=== PATIENT | male | born 1940 | race Caucasian/White ===

== ENCOUNTER 2016-11-24 14:16 | Inpatient (IN) | payer MEDICARE, OTHER ==
[2016-11-24] MEDS ORDERED: IBUPROFEN 600 MG TAB PO STA (14:52)
[2016-11-24] MEDS ORDERED: ACETAMINOPHEN TAB 500 MG TAB PO STA (14:52)
[2016-11-24] MEDS ORDERED: SODIUM CHLORIDE 0.9% 500 ML IV STA ×2 (14:52→16:14)
[2016-11-24] MEDS ORDERED: SODIUM CHLORIDE 0.9% 1,000 ML IV STA ×2 (14:52)
--- NOTE | 2016-11-24 15:10 | ED ---
General Adult HPI - General Chief complaint: Fever Stated complaint: HYPOTENSION Time Seen by Provider: 11/24/16 14:38 Source: patient, RN notes reviewed, old records reviewed Mode of arrival: ambulatory Limitations: no limitations - History of Present Illness Initial comments: This is a 36-year-old male ER for evaluation of dizziness, fever, multiple medical issues. Patient has significant medical history, patient is unable to give accurate history secondary to underlying condition and mental status. History is obtained from EMS and the patient's chart - Related Data Home Medications Medication Instructions Recorded Confirmed Aspirin EC [Ecotrin Low Dose] 81 mg PO DAILY 08/03/16 11/24/16 Cholecalciferol [Vitamin D3] 2,000 unit PO DAILY 08/03/16 11/24/16 Donepezil HCl 5 mg PO HS 08/03/16 11/24/16 Insulin Glargine [Lantus] 5 units SQ DAILY 08/03/16 11/24/16 Lisinopril 10 mg PO DAILY 08/03/16 11/24/16 Multivitamins, Thera [Multivitamin] 1 tab PO HS 08/03/16 11/24/16 Pravastatin Sodium 40 mg PO HS 08/03/16 11/24/16 metFORMIN HCL 1,000 mg PO BID 08/03/16 11/24/16 Amoxicillin/Potassium Clav 1 tab PO Q12HR 11/17/16 11/24/16 [Augmentin 875-125 Tablet] Magnesium Hydroxide [Milk of 400 mg PO Q72H PRN 11/17/16 11/24/16 Magnesia] Sulfamethox-Tmp 800-160Mg [Bactrim 1 tab PO Q12HR 11/17/16 11/24/16 DS 800-160 mg] Acetaminophen Tab [Tylenol Tab] 650 mg PO Q4H PRN 11/24/16 11/24/16 Amino Acids/Protein Hydrolys 30 ml PO BID 11/24/16 11/24/16 [Pro-Stat Supplement] Memantine [Namenda] 10 mg PO BID 11/24/16 11/24/16 Previous Rx's Medication Instructions Recorded Ferrous Sulfate [Feosol] 325 mg PO BID #60 tab 08/07/16 Sennosides-Docusate Sodium 2 tab PO DAILY #30 tablet 08/07/16 [Senokot-S] HYDROcodone/APAP 5-325MG [[place] 1 tab PO Q6HR PRN #90 tab 09/16/16 5-325] Tamsulosin [Flomax] 0.4 mg PO PC-SUPPER #30 cap.er.24h 09/16/16 clonazePAM [KlonoPIN] 0.5 mg PO BID PRN #60 tab 09/16/16 Allergies Allergy/AdvReac Type Severity Reaction Status Date / Time metoprolol Allergy Unknown Verified 11/24/16 14:32 Review of Systems ROS Statement: Those systems with pertinent positive or pertinent negative responses have been documented in the HPI. ROS Other: All systems not noted in ROS Statement are negative. Past Medical History Past Medical History: Dementia, Diabetes Mellitus, Hyperlipidemia, Hypertension Additional Past Medical History / Comment(s): LT HIP FX(HAD SX), INCONT,TOTAL CARE,BEDBOUND,UNABLE TO FEED SELF(PUREED DIET),CONFUSED. non healing wounds R heel and bottom History of Any Multi-Drug Resistant Organisms: Unobtainable Past Surgical History: Orthopedic Surgery Additional Past Surgical History / Comment(s): HEMIARTHROPLASTY LY HIP 08-05-16 Past Anesthesia/Blood Transfusion Reactions: No Reported Reaction Past Psychological History: No Psychological Hx Reported Additional Psychological History / Comment(s): dementia. CURRENTLY AT [facility] [place] IN [place] Smoking Status: Former smoker Past Alcohol Use History: None Reported Additional Past Alcohol Use History / Comment(s): SMOKED BRIEFLY IN HIS 20'S THEN QUIT. Past Drug Use History: None Reported - Past Family History Father History Unknown: Yes Family Medical History: Osteoarthritis (OA) Mother History Unknown: Yes Additional Family Medical History / Comment(s): unk- she got displaced during the war General Exam - General Exam Comments Initial Comments: Large sacral decubitus ulcer with eschar Limitations: no limitations General appearance: alert, in no apparent distress, lethargic, cachectic Head exam: Present: atraumatic, normocephalic, normal inspection Eye exam: Present: normal appearance, PERRL, EOMI. Absent: scleral icterus, conjunctival injection, periorbital swelling ENT exam: Present: normal exam, mucous membranes moist Neck exam: Present: normal inspection. Absent: tenderness, meningismus, lymphadenopathy Respiratory exam: Present: normal lung sounds bilaterally. Absent: respiratory distress, wheezes, rales, rhonchi, stridor Cardiovascular Exam: Present: regular rate, normal rhythm, normal heart sounds. Absent: systolic murmur, diastolic murmur, rubs, gallop, clicks GI/Abdominal exam: Present: soft, normal bowel sounds. Absent: distended, tenderness, guarding, rebound, rigid Extremities exam: Present: normal inspection, full ROM, normal capillary refill. Absent: tenderness, pedal edema, joint swelling, calf tenderness Back exam: Present: normal inspection Neurological exam: Present: alert, oriented X3, CN II-XII intact Psychiatric exam: Present: normal affect, normal mood Skin exam: Present: warm, dry, intact, normal color. Absent: rash Course Vital Signs 11/24/16 11/24/16 11/24/16 14:21 14:32 14:46 Temperature 97.3 F L 100.1 F H Pulse Rate 85 97 Respiratory 18 20 Rate Blood Pressure 99/55 100/52 153/73 O2 Sat by Pulse 99 92 L Oximetry - Reevaluation(s) Reevaluation #1: 11/24/16 16:01 Patient remains in no acute distress EKG Findings - EKG Comments: EKG Findings:: EKG shows normal sinus rhythm rate of 89, AK 136, QRS 80, QTC 420 Medical Decision Making - Medical Decision Making 70 formality ER for evaluation. States that symptoms for evaluation of fever, weakness, worsening sacral decubitus ulcer. Patient has been on outpatient antibiotics oral with no help. Patient will be admitted for further evaluation and treatment, monitoring of bacteremia and sepsis. - Lab Data Result diagrams: 11/24/16 14:35 Lab Results 11/24/16 11/24/16 Range/Units 14:35 14:35 WBC 9.5 (3.8-10.6) k/uL RBC 3.28 L (4.30-5.90) m/uL Hgb 10.1 L (13.0-17.5) gm/dL Hct 31.8 L (39.0-53.0) % MCV 96.8 (80.0-100.0) fL MCH 30.7 (25.0-35.0) pg MCHC 31.8 (31.0-37.0) g/dL RDW 15.1 (11.5-15.5) % Plt Count 358 (150-450) k/uL Neutrophils % 77 % Lymphocytes % 10 % Monocytes % 8 % Eosinophils % 1 % Basophils % 0 % Neutrophils # 7.3 (1.3-7.7) k/uL Lymphocytes # 1.0 (1.0-4.8) k/uL Monocytes # 0.7 (0-1.0) k/uL Eosinophils # 0.1 (0-0.7) k/uL Basophils # 0.0 (0-0.2) k/uL PT 10.6 (9.0-12.0) sec INR 1.0 (<1.1) APTT 23.1 (22.0-30.0) sec - Radiology Data Radiology results: report reviewed (Chest x-ray two-view), image reviewed Disposition Clinical Impression: Fever, Altered mental status, Acute renal failure, Sacral decubitus ulcer, stage IV, Failure of outpatient treatment Disposition: ADMITTED IP TO THIS [facility] Condition: Fair Referrals: Keron Mora MD [Primary Care Provider] - 1-2 days
[2016-11-24] MEDS ORDERED: IV VANCOMYCIN PER PHARMACY 1 EACH MISC MISCELLANE PRN (15:43)
[2016-11-24 15:45] LABS: Basophils % (A) 0 %; CH 30.5; CHCM 31.6; Eosinophils # (A) 0.1 k/uL (0-0.7); Eosinophils % (A) 1 %; HCT 31.8 % (39.0-53.0); HDW 2.21; HGB 10.1 gm/dL (13.0-17.5); Luc # (Auto) 0.34; Luc % (Auto) 4; Lymphocytes % (A) 10 %; MCH 30.7 pg (25.0-35.0); MCHC 31.8 g/dL (31.0-37.0); MCV 96.8 fL (80.0-100.0); Mean Platelet Volume 7.2; Monocytes # (A) 0.7 k/uL (0-1.0); Monocytes % (A) 8 %; Neutrophils # (A) 7.3 k/uL (1.3-7.7); Neutrophils % (A) 77 %; RBC 3.28 m/uL (4.30-5.90); RDW 15.1 % (11.5-15.5); WBC 9.5 k/uL (3.8-10.6); WBC (Perox) 10.08
[2016-11-24] MEDS ORDERED: VANCOMYCIN 1,250 MG in SODIUM CHLORIDE 0.9% 250 ML IVPB STA (15:50)
[2016-11-24 15:57] LABS: Partial Thromboplastin Time 23.1 sec (22.0-30.0); Prothrombin Time 10.6 sec (9.0-12.0)
[2016-11-24 15:58] LABS: ALT 65 U/L (21-72); AST 48 U/L (17-59); Alkaline Phosphatase 50 U/L (38-126); Anion Gap 13 mmol/L; Blood Urea Nitrogen 49 mg/dL (9-20); Calcium 8.7 mg/dL (8.4-10.2); Carbon Dioxide 19 mmol/L (22-30); Chloride 109 mmol/L (98-107); Glucose 186 mg/dL (74-99); Magnesium 2.1 mg/dL (1.6-2.3); Non-African American GFR(MDRD) 59 (>60 ml/min/1.73 sqM); Phosphorous 3.9 mg/dL (2.5-4.5); Potassium 5.5 mmol/L (3.5-5.1); Sodium 141 mmol/L (137-145); Total Bilirubin 0.3 mg/dL (0.2-1.3); Total Protein 5.5 g/dL (6.3-8.2)
[2016-11-24] MEDS ORDERED: ACETAMINOPHEN IV (For NPO) 1,000 MG in EMPTY BAG 1 BAG IVPB ONE (15:58)
[2016-11-24] MEDS ORDERED: SODIUM CHLORIDE 0.9% 2,000 ML IV STA (16:14)
[2016-11-24 16:16] LABS: Creatine Kinase 519 U/L (55-170)
[2016-11-24 16:23] LABS: Appearance,Urine Clear (Clear); Bilirubin,Urine Negative (Negative); Glucose,Urine (UA) 1+ (Negative); Ketones,Urine Negative (Negative); Leukocyte Esterase,Urine Negative (Negative); Nitrite,Urine Negative (Negative); PH, Urine 5.5 (5.0-8.0); Protein,Urine Trace (Negative); UA Billing (MACRO vs. MICRO) CHEM
[2016-11-24] MEDS ORDERED: ACETAMINOPHEN IV (For NPO) 1,000 MG in EMPTY BAG 1 BAG IVPB PRN (16:23)
[2016-11-24 16:28] LABS: Troponin I <0.012 ng/mL (0.000-0.034)
[2016-11-24 16:29] LABS: Creatine Kinase MB 7.1 ng/mL (0.0-2.4)
--- NOTE | 2016-11-24 16:41 | XR ---
EXAMINATION TYPE: XR chest 2V DATE OF EXAM: 11/24/2016 4:27 PM COMPARISON: Prior chest x-ray September 10, 2016 HISTORY: Weakness TECHNIQUE: Frontal and lateral views of the chest are obtained. 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 Somewhat low lung volumes is again seen. There is left basilar linear scarring or atelectasis. There is no suspici ous focal air space opacity, pleural effusion, or pneumothorax seen. The cardiac silhouette size is within normal limits with atherosclerotic thoracic aorta. The osseous structures are somewhat demin eralized. Some multilevel spurring in the upper to midthoracic spine is present. IMPRESSION: Post CABG changes with left basilar linear atelectasis felt present.
[2016-11-24] MEDS: SODIUM CHLORIDE 0.9% 500 ML IV SCH ×3 (18:38→18:40)
[2016-11-24] MEDS: SODIUM CHLORIDE 0.9% 1,000 ML IV SCH ×2 (20:15→22:14)
[2016-11-24] MEDS ORDERED: clonazePAM 0.5 MG TAB PO PRN (20:25)
[2016-11-24] MEDS ORDERED: MAGNESIUM HYDROXIDE 2,400 MG/10 ML CUP PO PRN (20:25)
[2016-11-24 20:47] LABS: Glucose,Whole Blood 109 mg/dL (75-99)
[2016-11-24] MEDS ORDERED: NON-FORMULARY DRUG (Amino Acids/Protein Hydrolys [Pro-Stat Supplement] 30 ML) PO SCH (21:00)
[2016-11-24] MEDS: INSULIN LISPRO (humaLOG) 300 UNIT/3 ML VIAL SQ SCH (22:01)
[2016-11-24 22:11] LABS: Hemoglobin A1C 7.1 % (4.2-6.1)
[2016-11-24] MEDS: PRAVASTATIN SODIUM 40 MG TAB PO SCH (22:13)
[2016-11-24] MEDS: DONEPEZIL 5 MG TAB PO SCH (22:13)
[2016-11-24] MEDS: MEMANTINE 10 MG TAB PO SCH (22:13)
[2016-11-24] MEDS: MULTIVITAMINS, THERA 1 EACH TAB PO SCH (22:13)
[2016-11-24] MEDS: FERROUS SULFATE 325 MG TAB PO SCH (22:13)
[2016-11-25 05:40] LABS: Glucose,Whole Blood 96 mg/dL (75-99)
[2016-11-25] MEDS: INSULIN LISPRO (humaLOG) 300 UNIT/3 ML VIAL SQ SCH ×4 (06:40→21:45)
[2016-11-25] MEDS: SODIUM CHLORIDE 0.9% 1,000 ML IV SCH (06:42)
[2016-11-25 07:17] LABS: Anion Gap 13 mmol/L; Blood Urea Nitrogen 31 mg/dL (9-20); Calcium 8.3 mg/dL (8.4-10.2); Carbon Dioxide 15 mmol/L (22-30); Chloride 114 mmol/L (98-107); Glucose 81 mg/dL (74-99); Non-African American GFR(MDRD) >60 (>60 ml/min/1.73 sqM); Potassium 4.7 mmol/L (3.5-5.1); Sodium 142 mmol/L (137-145)
[2016-11-25] MEDS: ENOXAPARIN 40 MG/0.4 ML SYRINGE SQ SCH (09:23)
[2016-11-25] MEDS: PANTOPRAZOLE 40 MG/10 ML VIAL IV SCH (09:23)
[2016-11-25] MEDS: FERROUS SULFATE 325 MG TAB PO SCH ×2 (09:24→21:44)
[2016-11-25] MEDS: ASPIRIN 81 MG CHEW PO SCH (09:24)
[2016-11-25] MEDS: LISINOPRIL 10 MG TAB PO SCH (09:24)
[2016-11-25] MEDS: MEMANTINE 10 MG TAB PO SCH ×2 (09:24→21:45)
[2016-11-25] MEDS: CHOLECALCIFEROL 1,000 UNIT TAB PO SCH (09:24)
[2016-11-25] MEDS: SENNOSIDES-DOCUSATE SODIUM 1 EACH TAB PO SCH (09:35)
[2016-11-25] MEDS ORDERED: Potassium Replacement Protocol 1 EACH MISC MISCELLANE PRN (10:42)
[2016-11-25] MEDS ORDERED: Magnesium Replacement Protocol 1 EACH MISC MISCELLANE PRN (10:42)
[2016-11-25 11:49] LABS: Glucose,Whole Blood 117 mg/dL (75-99)
--- NOTE | 2016-11-25 12:48 | P.HPIM ---
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 Patient is a chronic resident at the dementia unit at [facility] he's been following closely with the wound care clinic for decubitus ulcers involving the coccyx area as well as the left ankle. For the past few days, patient was noted to be more lethargic and has been having decreased in his appetite. Yes[facility] with the highest of 102.3. He was sent to the emergency room for further evaluation. In the emergency room, patient was found to be septic with an elevated lactate. He was started on broad-spectrum antibiotic and IV fluid and was admitted to the hospital for further evaluation. Patient himself is nonverbal and is unable to provide any medical history. Most of the medical history was obtained by chart review and nursing staff report. Review of Systems Unable to review other systems as patient is nonverbal Past Medical History Past Medical History: Dementia, Diabetes Mellitus, Hyperlipidemia, Hypertension Additional Past Medical History / Comment(s): LT HIP FX(HAD SX), INCONT,TOTAL CARE,BEDBOUND,UNABLE TO FEED SELF(PUREED DIET),CONFUSED. non healing wounds R heel and bottom History of Any Multi-Drug Resistant Organisms: Unobtainable Past Surgical History: Orthopedic Surgery Additional Past Surgical History / Comment(s): HEMIARTHROPLASTY LY HIP 08-05-16 Past Anesthesia/Blood Transfusion Reactions: No Reported Reaction Past Psychological History: No Psychological Hx Reported Additional Psychological History / Comment(s): dementia. CURRENTLY AT [facility] [place] IN [place] Smoking Status: Former smoker Past Alcohol Use History: None Reported Additional Past Alcohol Use History / Comment(s): SMOKED BRIEFLY IN HIS 20'S THEN QUIT. Past Drug Use History: None Reported - Past Family History Father History Unknown: Yes Family Medical History: Osteoarthritis (OA) Mother History Unknown: Yes Additional Family Medical History / Comment(s): unk- she got displaced during the war Medications and Allergies Home Medications Medication Instructions Recorded Confirmed Type Aspirin EC [Ecotrin Low Dose] 81 mg PO DAILY 08/03/16 11/24/16 History Cholecalciferol [Vitamin D3] 2,000 unit PO DAILY 08/03/16 11/24/16 History Donepezil HCl 5 mg PO HS 08/03/16 11/24/16 History Insulin Glargine [Lantus] 5 units SQ DAILY 08/03/16 11/24/16 History Lisinopril 10 mg PO DAILY 08/03/16 11/24/16 History Multivitamins, Thera [Multivitamin] 1 tab PO HS 08/03/16 11/24/16 History Pravastatin Sodium 40 mg PO HS 08/03/16 11/24/16 History metFORMIN HCL 1,000 mg PO BID 08/03/16 11/24/16 History Amoxicillin/Potassium Clav 1 tab PO Q12HR 11/17/16 11/24/16 History [Augmentin 875-125 Tablet] Magnesium Hydroxide [Milk of 400 mg PO Q72H PRN 11/17/16 11/24/16 History Magnesia] Sulfamethox-Tmp 800-160Mg [Bactrim 1 tab PO Q12HR 11/17/16 11/24/16 History DS 800-160 mg] Acetaminophen Tab [Tylenol Tab] 650 mg PO Q4H PRN 11/24/16 11/24/16 History Amino Acids/Protein Hydrolys 30 ml PO BID 11/24/16 11/24/16 History [Pro-Stat Supplement] Memantine [Namenda] 10 mg PO BID 11/24/16 11/24/16 History Allergies Allergy/AdvReac Type Severity Reaction Status Date / Time metoprolol Allergy Unknown Verified 11/24/16 14:32 Physical Exam Vitals: Vital Signs Temp Pulse Pulse Resp BP BP Pulse Ox 11/25/16 11:44 91 20 11/25/16 11:43 98.8 F 91 20 126/55 95 11/25/16 08:00 97.0 F L 84 18 119/54 98 11/25/16 04:00 100.0 F H 75 18 85/49 98 11/25/16 00:00 99.8 F H 78 18 85/47 99 11/24/16 20:00 99.5 F 80 18 114/47 98 11/24/16 18:57 97.2 F L 89 18 108/58 98 11/24/16 18:30 97.2 F L 89 18 108/58 98 11/24/16 17:52 97.3 F L 72 18 116/57 98 11/24/16 17:25 77 18 127/61 98 11/24/16 16:27 97.1 F L 80 18 111/61 96 Intake and Output 11/24/16 11/25/16 11/25/16 22:59 06:59 14:59 Intake Total 1600 495 Balance 1600 495 Intake: Intake, IV Titration 1600 375 Amount ACETAMINOPHEN IV (For NPO 400 ) 1,000 mg In Empty Bag 1 bag @ 400 mls/hr IVPB Q6HR PRN Rx#:[id number] Sodium Chloride 0.9% 1, 1200 375 000 ml @ 150 mls/hr IV . Q6H40M LORE Rx#:[id number] Oral 120 Other: Voiding Method Diaper Diaper Diaper # Voids 1 Weight 67.5 kg 67.5 kg 67.5 kg Patient Weight 11/26/16 06:59 Weight 67.5 kg General: The patient is awake and alert, in no distress Eye: there is normal conjunctiva bilaterally. Neck: The neck is supple, there is no JVD. Cardiovascular: Normal S1-S2, no S3-S4, no murmurs. Respiratory: Lungs clear to auscultation bilaterally Gastrointestinal: Abdomen is soft, nontender Musculoskeletal: There is no pedal edema. Skin: Skin is warm and dry. Please refer to the nursing staff documentation and pictures in the paper chart for description of the decubitus ulcer Results CBC & Chem 7: 11/24/16 14:35 11/25/16 05:48 Labs: Abnormal Lab Results - Last 24 Hours (Table) 11/24/16 11/24/16 11/25/16 Range/Units 18:19 20:44 05:48 Chloride 114 H (98-107) mmol/L Carbon Dioxide 15 L (22-30) mmol/L BUN 31 H (9-20) mg/dL POC Glucose (mg/dL) 109 H (75-99) mg/dL Plasma Lactic Acid Aman 2.3 H* (0.7-2.0) mmol/L Calcium 8.3 L (8.4-10.2) mg/dL 11/25/16 Range/Units 11:43 Chloride (98-107) mmol/L Carbon Dioxide (22-30) mmol/L BUN (9-20) mg/dL POC Glucose (mg/dL) 117 H (75-99) mg/dL Plasma Lactic Acid Aman (0.7-2.0) mmol/L Calcium (8.4-10.2) mg/dL Thrombosis Risk Factor Assmnt - Choose All That Apply Each Factor Represents 1 point: Abnormal pulmonary function (COPD) Each Risk Factor Represents 2 Points: Age 61-74 years Thrombosis Risk Factor Assessment Total Risk Factor Score: 3 Thrombosis Risk Factor Assessment Level: Moderate Risk Assessment and Plan Plan: 1. decubitus ulcer infection with sepsis on presentation: Currently on broad- spectrum antibiotic and IV fluid. Patient was seen and evaluated by infectious disease, appreciate recommendations. We will consult general surgery for further evaluation if any debridement is needed. 2. 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 Essential hypertension: Blood pressure well-controlled 4. Type 2 diabetes mellitus 5. Iron deficiency anemia 6. DVT prophylaxis with Lovenox Today, I reviewed his lab work results and medication list. Continue current regimen. Continue broad spectrum antibiotic. Appreciate senior market intelligence consultant's recommendations. Repeat lab work in the morning.
--- NOTE | 2016-11-25 13:10 | P.GSCN ---
History of Present Illness Consult date: 11/25/16 Reason for Consult: Sacral decubitus ulcer History of present illness: The patient was hospitalized with sepsis. He was found to have an infected decubitus ulcer in the sacral region. Local wound care has been unable to improve the overall appearance. There is a foul odor. The patient is nonverbal. The history is obtained from the chart. Review of Systems ROS unobtainable: due to mental status Past Medical History Past Medical History: Dementia, Diabetes Mellitus, Hyperlipidemia, Hypertension Additional Past Medical History / Comment(s): LT HIP FX(HAD SX), INCONT,TOTAL CARE,BEDBOUND,UNABLE TO FEED SELF(PUREED DIET),CONFUSED. non healing wounds R heel and bottom History of Any Multi-Drug Resistant Organisms: Unobtainable Past Surgical History: Orthopedic Surgery Additional Past Surgical History / Comment(s): HEMIARTHROPLASTY LY HIP 08-05-16 Past Anesthesia/Blood Transfusion Reactions: No Reported Reaction Past Psychological History: No Psychological Hx Reported Additional Psychological History / Comment(s): dementia. CURRENTLY AT [facility] [place] IN [place] Smoking Status: Former smoker Past Alcohol Use History: None Reported Additional Past Alcohol Use History / Comment(s): SMOKED BRIEFLY IN HIS 20'S THEN QUIT. Past Drug Use History: None Reported - Past Family History Father History Unknown: Yes Family Medical History: Osteoarthritis (OA) Mother History Unknown: Yes Additional Family Medical History / Comment(s): unk- she got displaced during the war Medications and Allergies Home Medications Medication Instructions Recorded Confirmed Type Aspirin EC [Ecotrin Low Dose] 81 mg PO DAILY 08/03/16 11/24/16 History Cholecalciferol [Vitamin D3] 2,000 unit PO DAILY 08/03/16 11/24/16 History Donepezil HCl 5 mg PO HS 08/03/16 11/24/16 History Insulin Glargine [Lantus] 5 units SQ DAILY 08/03/16 11/24/16 History Lisinopril 10 mg PO DAILY 08/03/16 11/24/16 History Multivitamins, Thera [Multivitamin] 1 tab PO HS 08/03/16 11/24/16 History Pravastatin Sodium 40 mg PO HS 08/03/16 11/24/16 History metFORMIN HCL 1,000 mg PO BID 08/03/16 11/24/16 History Amoxicillin/Potassium Clav 1 tab PO Q12HR 11/17/16 11/24/16 History [Augmentin 875-125 Tablet] Magnesium Hydroxide [Milk of 400 mg PO Q72H PRN 11/17/16 11/24/16 History Magnesia] Sulfamethox-Tmp 800-160Mg [Bactrim 1 tab PO Q12HR 11/17/16 11/24/16 History DS 800-160 mg] Acetaminophen Tab [Tylenol Tab] 650 mg PO Q4H PRN 11/24/16 11/24/16 History Amino Acids/Protein Hydrolys 30 ml PO BID 11/24/16 11/24/16 History [Pro-Stat Supplement] Memantine [Namenda] 10 mg PO BID 11/24/16 11/24/16 History Allergies Allergy/AdvReac Type Severity Reaction Status Date / Time metoprolol Allergy Unknown Verified 11/24/16 14:32 Surgical - Exam Vital Signs Temp Pulse Resp BP 97.3 F L 74 18 99/55 11/24/16 14:21 11/24/16 14:21 11/24/16 14:21 11/24/16 14:21 Physical exam: General: Well-developed, well-nourished HEENT: Normocephalic, sclerae nonicteric Abdomen: Nontender, nondistended Extremities: No edema Neuro: Nonverbal, contractures noted Sacral region with a large 10 x 7 cm foul-smelling decubitus ulcer. There is serous drainage, mild tenderness, no erythema Results - Labs 11/24/16 14:35 11/25/16 05:48 Abnormal Lab Results - Last 24 Hours (Table) 11/24/16 11/24/16 11/25/16 Range/Units 18:19 20:44 05:48 Chloride 114 H (98-107) mmol/L Carbon Dioxide 15 L (22-30) mmol/L BUN 31 H (9-20) mg/dL POC Glucose (mg/dL) 109 H (75-99) mg/dL Plasma Lactic Acid Aman 2.3 H* (0.7-2.0) mmol/L Calcium 8.3 L (8.4-10.2) mg/dL 11/25/16 Range/Units 11:43 Chloride (98-107) mmol/L Carbon Dioxide (22-30) mmol/L BUN (9-20) mg/dL POC Glucose (mg/dL) 117 H (75-99) mg/dL Plasma Lactic Acid Aman (0.7-2.0) mmol/L Calcium (8.4-10.2) mg/dL Diabetes panel 11/25/16 Range/Units 05:48 Sodium 142 (137-145) mmol/L Potassium 4.7 (3.5-5.1) mmol/L Chloride 114 H (98-107) mmol/L Carbon Dioxide 15 L (22-30) mmol/L BUN 31 H (9-20) mg/dL Creatinine 0.94 (0.66-1.25) mg/dL Glucose 81 (74-99) mg/dL Calcium 8.3 L (8.4-10.2) mg/dL Calcium panel 11/25/16 Range/Units 05:48 Calcium 8.3 L (8.4-10.2) mg/dL Pituitary panel 11/25/16 Range/Units 05:48 Sodium 142 (137-145) mmol/L Potassium 4.7 (3.5-5.1) mmol/L Chloride 114 H (98-107) mmol/L Carbon Dioxide 15 L (22-30) mmol/L BUN 31 H (9-20) mg/dL Creatinine 0.94 (0.66-1.25) mg/dL Glucose 81 (74-99) mg/dL Calcium 8.3 L (8.4-10.2) mg/dL Adrenal panel 11/25/16 Range/Units 05:48 Sodium 142 (137-145) mmol/L Potassium 4.7 (3.5-5.1) mmol/L Chloride 114 H (98-107) mmol/L Carbon Dioxide 15 L (22-30) mmol/L BUN 31 H (9-20) mg/dL Creatinine 0.94 (0.66-1.25) mg/dL Glucose 81 (74-99) mg/dL Calcium 8.3 L (8.4-10.2) mg/dL Assessment and Plan (1) Sacral decubitus ulcer, stage IV Narrative/Plan: We'll proceed with debridement of this foul-smelling sacral decubitus ulcer tomorrow. Status: Acute
[2016-11-25] MEDS ORDERED: VANCOMYCIN 1,250 MG in SODIUM CHLORIDE 0.9% 250 ML IVPB SCH (16:00)
[2016-11-25] MEDS: COLLAGENASE 250 UNIT/GM OINTMENT 30 GM TUBE TOPICAL SCH (16:03)
--- NOTE | 2016-11-25 17:01 | CONS ---
DATE OF CONSULTATION: 11/25/2016 REASON FOR CONSULTATION: Possible sepsis and sacral wound. HISTORY OF PRESENT ILLNESS: The patient is a 76-year-old male, who is resident of [facility]. Underlying dementia. The patient did have a chronic wound to his sacral area for which the patient did follow up with [facility]. He also has right heel wound apparently that has been healed up by Dr. Morales. The patient has been sent to the ER at [facility] where the patient having persistent fever of 102 degrees Fahrenheit at the assisted. The patient has been subsequently evaluated by the ER physician. The patient did have an elevated lactic acid. However, his white count was at 9.5. The patient urine was not significantly positive. He did have influenza serology which was negative. Patient has been started on Rocephin and Vanco. ID was consulted for further recommendations regarding antibiotic therapy. All of this information has been obtained from review of the chart, talking to the nursing staff and the patient is current did have underlying dementia and he is unable to provide any reliable history. REVIEW OF SYSTEMS: Could not be reliably obtained. The positive point have been mentioned in the history of present illness. PAST MEDICAL HISTORY: Significant for hypertension, hyperlipidemia, diabetes mellitus, dementia, nonbleeding ulcer also to the sacral area. PAST SURGICAL HISTORY: Hemiarthroplasty left hip. SOCIAL HISTORY: Remote history of smoking. No drinking or drug use. FAMILY HISTORY: No pertinent findings were noticed. ALLERGIES: METOPROLOL. Medications include the patient is on: 1. Tylenol. 2. [place]. 3. Aspirin. 4. Rocephin 1 gram q.24. 5. Klonopin. 6. Aricept. 7. Lovenox. 8. Iron sulfate. 9. Lantus. 10. Humalog. 11. Zestril. 12. Milk of magnesia. 13. Namenda. 14. Theragran. 15. Protonix. 16. Pravachol. 17. Senokot. 18. Vancomycin pharmacy to dose. On examination, blood pressure is 126/55 with a pulse of 91, temperature 98.8. He is 95%. General description is an elderly male, lying in bed in no distress. No tachypnea or accessory muscle of respiration use. HEENT examination shows pallor. There is no scleral icterus. Oral mucosal membranes dry. NECK: Trachea is central. no thyromegaly LUNGS: Unlabored breathing. Diminished breath sounds at the bases. HEART: S1, S2. Regular rate and rhythm. ABDOMEN: Soft, no tenderness. EXTREMITIES : No edema of feet. Examination of the sacral area, unstable pressure ulcers with significantly deep with foul smelling and slough tissue at the base. No significant surrounding erythema. NEUROLOGICAL: The patient is awake. Overall orientation couldnot be determined as the patient is not verbal. LABS: Hemoglobin is 10.1, white count 9.5, BUN of 31, creatinine 0.94. Electrolytes have been normal. Lactic acid 2.3. UA has been negative. Diagnostic impression and plan: Patient admitted to the hospital with fever, did have an elevated lactic acid, source is likely infected sacral pressure ulcer with a foul smelling, the likely organism would be the gram-positive skin griffin as well as the enteric gram-negative. In view of the proximity to his GI tract, the patient was clinical focus of infection. Chest was clear to auscultation and urinalysis has been negative. PLAN: 1. Will apply Santyl to the wound followed by moist dressing. 2. Recommend obtaining a surgery evaluation for debridement of the wound and deep cultures. 3. Continue the patient on Vancomycin and Fortaz and adjust antibiotic further on the basis of the cultures. We will follow-up on clinical condition and cultures to further adjust the medication if needed. Thank you for this consultation. Will follow this patient along with you. MATTHEW
[2016-11-25] MEDS: TAMSULOSIN 0.4 MG CAP.ER.24H PO SCH (17:08)
[2016-11-25 17:19] LABS: Glucose,Whole Blood 145 mg/dL (75-99)
[2016-11-25 20:20] LABS: Glucose,Whole Blood 201 mg/dL (75-99)
[2016-11-25] MEDS: MULTIVITAMINS, THERA 1 EACH TAB PO SCH (21:44)
[2016-11-25] MEDS: DONEPEZIL 5 MG TAB PO SCH (21:45)
[2016-11-25] MEDS: PRAVASTATIN SODIUM 40 MG TAB PO SCH (21:45)
[2016-11-25] MEDS: INSULIN GLARGINE 100 UNIT/ML 10 ML VIAL SQ SCH (21:45)
[2016-11-25] MEDS: ACETAMINOPHEN TAB 325 MG TAB PO PRN (21:51)
[2016-11-26] MEDS: INSULIN LISPRO (humaLOG) 300 UNIT/3 ML VIAL SQ SCH ×4 (05:41→22:30)
[2016-11-26 05:46] LABS: Glucose,Whole Blood 91 mg/dL (75-99)
[2016-11-26 06:40] LABS: Basophils % (A) 0 %; CH 29.9; Eosinophils # (A) 0.1 k/uL (0-0.7); Eosinophils % (A) 1 %; HCT 28.6 % (39.0-53.0); HDW 2.24; HGB 8.7 gm/dL (13.0-17.5); Hypochromasia Moderate; Luc # (Auto) 0.31; Luc % (Auto) 3; Lymphocytes # (A) 1.4 k/uL (1.0-4.8); Lymphocytes % (A) 15 %; MCH 30.5 pg (25.0-35.0); MCHC 30.5 g/dL (31.0-37.0); MCV 99.8 fL (80.0-100.0); Macrocytosis Slight; Mean Platelet Volume 6.9; Monocytes # (A) 0.7 k/uL (0-1.0); Monocytes % (A) 8 %; Neutrophils # (A) 6.8 k/uL (1.3-7.7); Neutrophils % (A) 72 %; RBC 2.87 m/uL (4.30-5.90); RDW 14.7 % (11.5-15.5); WBC 9.4 k/uL (3.8-10.6); WBC (Perox) 9.56
[2016-11-26 06:45] LABS: Anion Gap 9 mmol/L; Blood Urea Nitrogen 16 mg/dL (9-20); Calcium 7.8 mg/dL (8.4-10.2); Carbon Dioxide 16 mmol/L (22-30); Chloride 114 mmol/L (98-107); Glucose 88 mg/dL (74-99); Magnesium 1.6 mg/dL (1.6-2.3); Non-African American GFR(MDRD) >60 (>60 ml/min/1.73 sqM); Potassium 4.2 mmol/L (3.5-5.1); Sodium 139 mmol/L (137-145)
[2016-11-26] MEDS: ENOXAPARIN 40 MG/0.4 ML SYRINGE SQ SCH (07:58)
[2016-11-26] MEDS: CHOLECALCIFEROL 1,000 UNIT TAB PO SCH (07:58)
[2016-11-26] MEDS: LISINOPRIL 10 MG TAB PO SCH (07:58)
[2016-11-26] MEDS: ASPIRIN 81 MG CHEW PO SCH (07:58)
[2016-11-26] MEDS: PANTOPRAZOLE 40 MG/10 ML VIAL IV SCH (07:59)
[2016-11-26] MEDS: COLLAGENASE 250 UNIT/GM OINTMENT 30 GM TUBE TOPICAL SCH (07:59)
[2016-11-26] MEDS: MEMANTINE 10 MG TAB PO SCH ×2 (07:59→22:30)
[2016-11-26] MEDS: FERROUS SULFATE 325 MG TAB PO SCH ×2 (07:59→22:30)
[2016-11-26] MEDS: VANCOMYCIN 1,250 MG in SODIUM CHLORIDE 0.9% 250 ML IVPB SCH (08:06)
[2016-11-26] MEDS: SENNOSIDES-DOCUSATE SODIUM 1 EACH TAB PO SCH (08:07)
[2016-11-26] MEDS: INSULIN GLARGINE 100 UNIT/ML 10 ML VIAL SQ SCH (08:07)
[2016-11-26 11:55] LABS: Glucose,Whole Blood 101 mg/dL (75-99)
[2016-11-26] MEDS ORDERED: LACTATED RINGERS 1,000 ML IV ONE (12:00)
--- NOTE | 2016-11-26 12:27 | P.PN ---
Subjective No events overnight. Patient is laying in bed comfortably. He is nonverbal chronically. Objective - Vital Signs Vital signs: Vital Signs Temp 98.6 F 11/26/16 11:42 Pulse 73 11/26/16 11:42 Resp 18 11/26/16 11:42 BP 108/66 11/26/16 11:42 Pulse Ox 95 11/26/16 11:42 Intake & Output 11/25/16 11/26/16 11/26/16 18:59 06:59 18:59 Intake Total 2085 700 Balance 2085 700 Weight 67.5 kg 75.5 kg Intake: Intake, IV Titration 1725 700 Amount Sodium Chloride 0.9% 1, 1425 450 000 ml @ 150 mls/hr IV . Q6H40M LORE Rx#:[id number] Vancomycin 1,250 mg In 250 250 Sodium Chloride 0.9% 250 ml @ 125 mls/hr IVPB Q16H LORE Rx#:[id number] cefTRIAXone 1,000 mg In 50 Sodium Chloride 0.9% 50 ml @ 100 mls/hr IVPB Q24H LORE Rx#:[id number] Oral 360 Other: Voiding Method Diaper Diaper Diaper # Voids 1 1 - Exam General: The patient is awake and alert, in no distress Eye: there is normal conjunctiva bilaterally. Neck: The neck is supple, there is no JVD. Cardiovascular: Normal S1-S2, no S3-S4, no murmurs. Respiratory: Lungs clear to auscultation bilaterally Gastrointestinal: Abdomen is soft, nontender Musculoskeletal: There is no pedal edema. Neurological:. Speech is normal. Skin: Please refer to nursing staff documentation as well as pictures in the paper chart for description of the decubitus ulcer - Labs CBC & Chem 7: 11/26/16 05:56 11/26/16 05:56 Labs: Abnormal Lab Results - Last 24 Hours (Table) 11/25/16 11/25/16 11/26/16 Range/Units 17:00 20:18 05:56 RBC (4.30-5.90) m/uL Hgb (13.0-17.5) gm/dL Hct (39.0-53.0) % MCHC (31.0-37.0) g/dL Chloride 114 H (98-107) mmol/L Carbon Dioxide 16 L (22-30) mmol/L POC Glucose (mg/dL) 145 H 201 H (75-99) mg/dL Calcium 7.8 L (8.4-10.2) mg/dL 11/26/16 11/26/16 Range/Units 05:56 11:32 RBC 2.87 L (4.30-5.90) m/uL Hgb 8.7 L (13.0-17.5) gm/dL Hct 28.6 L (39.0-53.0) % MCHC 30.5 L (31.0-37.0) g/dL Chloride (98-107) mmol/L Carbon Dioxide (22-30) mmol/L POC Glucose (mg/dL) 101 H (75-99) mg/dL Calcium (8.4-10.2) mg/dL Microbiology - Last 24 Hours (Table) 11/24/16 22:00 Blood Culture - Preliminary Blood No Growth after 24 hours Assessment and Plan Plan: 1. decubitus ulcer infection with sepsis on presentation: Currently on broad- spectrum antibiotic. Patient was seen and evaluated by infectious disease and general surgery. Plan for O today for debridement.R 2. 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 Essential hypertension: Blood pressure well-controlled 4. Type 2 diabetes mellitus 5. Iron deficiency anemia 6. DVT prophylaxis with Lovenox Plan for today: Discontinue IV fluids. OR later today for debridement. Continue supportive care otherwise. Repeat lab work in the morning.
[2016-11-26] MEDS ORDERED: MIDAZOLAM 2 MG/2 ML VIAL ONE (12:53)
[2016-11-26] MEDS ORDERED: PROPOFOL 10 MG/ML 20 ML VIAL IV ONE (12:53)
[2016-11-26] MEDS ORDERED: LIDOCAINE 1% INJ 10MG/ML (20 ML MDV) ONE (12:53)
[2016-11-26] MEDS ORDERED: fentaNYL (PF) 50 MCG/ML 2 ML AMP ONE (12:53)
[2016-11-26] MEDS ORDERED: ePHEDrine 50 MG/ML 1 ML AMP ONE (12:53)
[2016-11-26] MEDS ORDERED: LIDOCAINE 1% (PF) 10MG/ML VIAL SQ ONE (13:17)
--- NOTE | 2016-11-26 13:30 | P.PCN ---
Date of Procedure: 11/26/16 Procedure(s) Performed: PREOPERATIVE DIAGNOSIS: Sacral decubitus ulcer POSTOPERATIVE DIAGNOSIS: Same PROCEDURE: Excisional debridement SURGEON: Duncan EBL: Minimal ANESTHESIA: Sedation COMPLICATIONS: None OPERATIVE PROCEDURE: Patient was placed in the right decubitus position. The sacral region was prepped and draped in usual sterile fashion. The necrotic tissue was debrided sharply using a scalpel and excised. This dissection took place all way down to the sacral bone which was noted to be somewhat necrotic. Areas of bleeding were controlled using ultra cautery. Deep cultures were taken. The wound was then packed with a saline moistened Kerlix roll. DISPOSITION: Stable to recovery room
[2016-11-26 16:53] LABS: Glucose,Whole Blood 123 mg/dL (75-99)
[2016-11-26] MEDS: HYDROcodone/APAP 5-325MG 1 EACH TAB PO PRN (18:23)
[2016-11-26] MEDS: TAMSULOSIN 0.4 MG CAP.ER.24H PO SCH (18:25)
[2016-11-26 20:57] LABS: Glucose,Whole Blood 236 mg/dL (75-99)
[2016-11-26] MEDS: DONEPEZIL 5 MG TAB PO SCH (22:29)
[2016-11-26] MEDS: MULTIVITAMINS, THERA 1 EACH TAB PO SCH (22:29)
[2016-11-26] MEDS: PRAVASTATIN SODIUM 40 MG TAB PO SCH (22:29)
[2016-11-27] MEDS: VANCOMYCIN 1,250 MG in SODIUM CHLORIDE 0.9% 250 ML IVPB SCH ×2 (00:21→16:33)
[2016-11-27 05:15] LABS: Glucose,Whole Blood 100 mg/dL (75-99)
[2016-11-27] MEDS: INSULIN LISPRO (humaLOG) 300 UNIT/3 ML VIAL SQ SCH ×4 (06:12→22:41)
[2016-11-27 07:07] LABS: CH 29.9; CHCM 30.4; HCT 26.6 % (39.0-53.0); HDW 2.37; HGB 8.1 gm/dL (13.0-17.5); Hypochromasia Moderate; MCH 30.3 pg (25.0-35.0); MCHC 30.7 g/dL (31.0-37.0); Macrocytosis Slight; Mean Platelet Volume 6.6; RBC 2.68 m/uL (4.30-5.90); RDW 14.9 % (11.5-15.5); WBC 7.1 k/uL (3.8-10.6); WBC (Perox) 7.09
[2016-11-27 07:17] LABS: Anion Gap 10 mmol/L; Blood Urea Nitrogen 10 mg/dL (9-20); Carbon Dioxide 16 mmol/L (22-30); Chloride 112 mmol/L (98-107); Glucose 85 mg/dL (74-99); Magnesium 1.5 mg/dL (1.6-2.3); Non-African American GFR(MDRD) >60 (>60 ml/min/1.73 sqM); Sodium 138 mmol/L (137-145)
[2016-11-27 07:59] LABS: Add Differential Manual Differential
[2016-11-27 08:01] LABS: Manual Review Performed; Nucleated Red Blood Cells 0 /100 WBC (0-0); Total Cells Counted 100
[2016-11-27] MEDS: INSULIN GLARGINE 100 UNIT/ML 10 ML VIAL SQ SCH (08:03)
[2016-11-27] MEDS: PANTOPRAZOLE 40 MG/10 ML VIAL IV SCH (08:03)
[2016-11-27] MEDS: LISINOPRIL 10 MG TAB PO SCH ×2 (08:04→09:12)
[2016-11-27] MEDS: ENOXAPARIN 40 MG/0.4 ML SYRINGE SQ SCH (08:04)
[2016-11-27] MEDS: ASPIRIN 81 MG CHEW PO SCH (08:04)
[2016-11-27] MEDS: FERROUS SULFATE 325 MG TAB PO SCH ×2 (08:04→22:57)
[2016-11-27] MEDS: MEMANTINE 10 MG TAB PO SCH ×2 (08:05→22:56)
[2016-11-27] MEDS: CHOLECALCIFEROL 1,000 UNIT TAB PO SCH (08:05)
[2016-11-27] MEDS: COLLAGENASE 250 UNIT/GM OINTMENT 30 GM TUBE TOPICAL SCH (08:05)
[2016-11-27] MEDS: HYDROcodone/APAP 5-325MG 1 EACH TAB PO PRN (08:13)
[2016-11-27] MEDS: SENNOSIDES-DOCUSATE SODIUM 1 EACH TAB PO SCH (08:14)
[2016-11-27] MEDS: MAGNESIUM SULFATE-D5W PMX 1 GM in DEXTROSE/WATER 1 100ML.BAG IVPB SCH ×2 (08:19→09:25)
[2016-11-27 11:56] LABS: Glucose,Whole Blood 112 mg/dL (75-99)
--- NOTE | 2016-11-27 12:24 | P.PN ---
Subjective No events overnight. Patient is laying in bed comfortably. He is nonverbal chronically. Objective - Vital Signs Vital signs: Vital Signs Temp 98.9 F 11/27/16 11:36 Pulse 74 11/27/16 11:37 Resp 16 11/27/16 11:37 BP 99/48 11/27/16 11:36 Pulse Ox 98 11/27/16 11:36 Intake & Output 11/26/16 11/27/16 11/27/16 18:59 06:59 18:59 Intake Total 1510 160 120 Output Total 310 1150 Balance 1200 160 -1030 Weight 75.5 kg Intake: IV 400 160 sodium chloride 0.9% @ 20 160 mls/hr Intake, IV Titration 750 Amount Sodium Chloride 0.9% 1, 450 000 ml @ 150 mls/hr IV . Q6H40M LORE Rx#:[id number] Vancomycin 1,250 mg In 250 Sodium Chloride 0.9% 250 ml @ 125 mls/hr IVPB Q16H LORE Rx#:[id number] cefTRIAXone 1,000 mg In 50 Sodium Chloride 0.9% 50 ml @ 100 mls/hr IVPB Q24H LORE Rx#:[id number] Oral 360 120 Output: Urine 300 1150 Straight 300 250 Estimated Blood Loss 10 Other: Voiding Method Indwelling Catheter Indwelling Catheter Indwelling Catheter # Voids 1 - Exam General: The patient is awake and alert, in no distress Eye: there is normal conjunctiva bilaterally. Neck: The neck is supple, there is no JVD. Cardiovascular: Normal S1-S2, no S3-S4, no murmurs. Respiratory: Lungs clear to auscultation bilaterally Gastrointestinal: Abdomen is soft, nontender Musculoskeletal: There is no pedal edema. Neurological:. Speech is normal. Skin: Please refer to nursing staff documentation as well as pictures in the paper chart for description of the decubitus ulcer - Labs CBC & Chem 7: 11/27/16 06:35 11/27/16 06:32 Labs: Abnormal Lab Results - Last 24 Hours (Table) 11/26/16 11/26/16 11/27/16 Range/Units 16:41 20:45 05:14 RBC (4.30-5.90) m/uL Hgb (13.0-17.5) gm/dL Hct (39.0-53.0) % MCHC (31.0-37.0) g/dL Chloride (98-107) mmol/L Carbon Dioxide (22-30) mmol/L POC Glucose (mg/dL) 123 H 236 H 100 H (75-99) mg/dL Calcium (8.4-10.2) mg/dL Magnesium (1.6-2.3) mg/dL 11/27/16 11/27/16 11/27/16 Range/Units 06:32 06:35 11:47 RBC 2.68 L (4.30-5.90) m/uL Hgb 8.1 L (13.0-17.5) gm/dL Hct 26.6 L (39.0-53.0) % MCHC 30.7 L (31.0-37.0) g/dL Chloride 112 H (98-107) mmol/L Carbon Dioxide 16 L (22-30) mmol/L POC Glucose (mg/dL) 112 H (75-99) mg/dL Calcium 8.0 L (8.4-10.2) mg/dL Magnesium 1.5 L (1.6-2.3) mg/dL Microbiology - Last 24 Hours (Table) 11/26/16 13:40 Gram Stain - Preliminary Buttock Wound Culture - Preliminary 11/24/16 22:00 Blood Culture - Preliminary Blood No Growth after 48 hours 11/26/16 13:40 Anaerobic Culture - Preliminary Buttock Assessment and Plan Plan: 1. decubitus ulcer infection with sepsis on presentation 2. Osteomyelitis of the sacrum 3. 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 Essential hypertension: Blood pressure well-controlled 5. Type 2 diabetes mellitus 6. Iron deficiency anemia 7. DVT prophylaxis with Lovenox This is a 76-year-old gentleman who presented to the hospital with decubitus ulcer infection and sepsis. He underwent debridement in the OR by general surgery. He is maintained on broad-spectrum antibiotic awaiting culture to finalize. His clinical condition improved overall. He would most likely require a PICC line and 6 weeks of IV antibiotic. We will continue supportive care otherwise. Repeat lab work in the morning.
[2016-11-27] MEDS ORDERED: MORPHINE SULFATE 2 MG/ML SYRINGE IVP PRN (12:52)
[2016-11-27] MEDS ORDERED: VANCOMYCIN TROUGH DUE 1 EACH MISC MISCELLANE ONE (15:00)
--- NOTE | 2016-11-27 15:01 | XR ---
EXAMINATION TYPE: XR sacrum coccyx DATE OF EXAM: 11/27/2016 12:24 PM COMPARISON: NONE HISTORY: 76-year-old male with pain, evaluate for osteomyelitis TECHNIQUE: 3 views FINDINGS: SI joints appear symmetric and intact. Partially visualized left hip hemiarthroplasty. Extensive vas deferens calcifications are present suggesting underlying diabetes. External artifact closely approximates the posterior margin of the and sacrum causing some limitation s in the exam. The distal coccyx is also excluded from view. No obvious osteolysis. Degenerative lugo ges lower lumbar spine. IMPRESSION: No obvious bony destruction by radiographs. If persistent clinical concern for osteomyelitis, follow- up radiographs, CT or MRI.
--- NOTE | 2016-11-27 16:35 | P.PN ---
Subjective Principal diagnosis: Sacral wound Patient remains nonverbal. He appears comfortable. The odor from the wound and in the patient's room is much improved. Objective - Vital Signs Vital signs: Vital Signs Temp 98.8 F 11/27/16 15:24 Pulse 89 11/27/16 15:27 Resp 18 11/27/16 15:27 BP 131/81 11/27/16 15:24 Pulse Ox 98 11/27/16 15:24 Intake & Output 11/26/16 11/27/16 11/27/16 18:59 06:59 18:59 Intake Total 1510 160 470 Output Total 310 1650 Balance 1200 160 -1180 Weight 75.5 kg Intake: IV 400 160 100 sodium chloride 0.9% @ 20 160 100 mls/hr Intake, IV Titration 750 250 Amount Magnesium Sulfate-D5w Pmx 200 1 gm In Dextrose/Water 1 100ml.bag @ 100 mls/hr IVPB Q1H LORE Rx#: [id number] Sodium Chloride 0.9% 1, 450 000 ml @ 150 mls/hr IV . Q6H40M LORE Rx#:[id number] Vancomycin 1,250 mg In 250 Sodium Chloride 0.9% 250 ml @ 125 mls/hr IVPB Q16H LORE Rx#:[id number] cefTRIAXone 1,000 mg In 50 50 Sodium Chloride 0.9% 50 ml @ 100 mls/hr IVPB Q24H LORE Rx#:[id number] Oral 360 120 Output: Urine 300 1650 Straight 300 750 Estimated Blood Loss 10 Other: Voiding Method Indwelling Catheter Indwelling Catheter Indwelling Catheter # Voids 1 - Exam Sacral wound with decreased necrotic debris, decreased odor, nontender - Labs CBC & Chem 7: 11/27/16 06:35 11/27/16 06:32 Labs: Abnormal Lab Results - Last 24 Hours (Table) 11/26/16 11/26/16 11/27/16 Range/Units 16:41 20:45 05:14 RBC (4.30-5.90) m/uL Hgb (13.0-17.5) gm/dL Hct (39.0-53.0) % MCHC (31.0-37.0) g/dL Chloride (98-107) mmol/L Carbon Dioxide (22-30) mmol/L POC Glucose (mg/dL) 123 H 236 H 100 H (75-99) mg/dL Calcium (8.4-10.2) mg/dL Magnesium (1.6-2.3) mg/dL 11/27/16 11/27/16 11/27/16 Range/Units 06:32 06:35 11:47 RBC 2.68 L (4.30-5.90) m/uL Hgb 8.1 L (13.0-17.5) gm/dL Hct 26.6 L (39.0-53.0) % MCHC 30.7 L (31.0-37.0) g/dL Chloride 112 H (98-107) mmol/L Carbon Dioxide 16 L (22-30) mmol/L POC Glucose (mg/dL) 112 H (75-99) mg/dL Calcium 8.0 L (8.4-10.2) mg/dL Magnesium 1.5 L (1.6-2.3) mg/dL Microbiology - Last 24 Hours (Table) 11/26/16 13:40 Gram Stain - Preliminary Buttock Wound Culture - Preliminary Gram Neg Bacilli 11/24/16 22:00 Blood Culture - Preliminary Blood No Growth after 48 hours 11/26/16 13:40 Anaerobic Culture - Preliminary Buttock Assessment and Plan (1) Sacral decubitus ulcer, stage IV Narrative/Plan: Continue local wound care. May utilize wound VAC at this point from my standpoint. I will be out of town until Thursday. Dr. Car will be covering me but I will not ask for him to see this patient unless there are issues that arise. Status: Acute
[2016-11-27 17:24] LABS: Glucose,Whole Blood 70 mg/dL (75-99)
[2016-11-27] MEDS: AMPICILLIN-SULBACTAM 3 GM in SODIUM CHLORIDE 0.9% 100 ML IVPB SCH ×2 (17:46→22:57)
[2016-11-27] MEDS: TAMSULOSIN 0.4 MG CAP.ER.24H PO SCH (17:46)
[2016-11-27 20:31] LABS: Glucose,Whole Blood 130 mg/dL (75-99)
--- NOTE | 2016-11-27 20:43 | PN ---
DATE OF SERVICE: 11/27/2016 REASON FOR FOLLOWUP: Sacral wound with osteomyelitis. INTERVAL HISTORY: The patient did have debridement of his sacral wound by Dr. Song, with evidence of extension down to the bone, some necrotic sacral bone that was removed. Culture has been obtained. The patient is hemodynamically stable, afebrile. He is nonverbal, unable to provide any history. No diarrhea has been noticed. On examination, blood pressure is 131/81 with a pulse of 89, temperature 98.8. He is 98% on room air. General description is an elderly male lying in bed in no distress. RESPIRATORY SYSTEM: Unlabored breathing. Clear to auscultation anteriorly. HEART: S1, S2. Regular rate and rhythm. ABDOMEN: Soft. No tenderness. Examination of the sacral wound shows the wound is significantly deep, with the bone exposed, and it still has some slough tissue surrounding redness slightly improved. LABS: Wound culture now showing Gram-negative bacilli. DIAGNOSTIC IMPRESSION AND PLAN: Patient with sacral osteomyelitis with stage IV sacral wound. Continue local wound care with Santyl followed by moist dressing. With the Gram-negative growing, would switch the ceftriaxone to Fortaz 2 grams q.8. Continue vancomycin while waiting for the final cultures. Continue supportive care. MTDD
[2016-11-27] MEDS: PRAVASTATIN SODIUM 40 MG TAB PO SCH (22:56)
[2016-11-27] MEDS: DONEPEZIL 5 MG TAB PO SCH (22:57)
[2016-11-27] MEDS: MULTIVITAMINS, THERA 1 EACH TAB PO SCH (22:57)
[2016-11-27] MEDS: ACETAMINOPHEN TAB 325 MG TAB PO PRN (23:04)
[2016-11-28 06:07] LABS: Basophils % (A) 0 %; CH 30.4; CHCM 31.7; Eosinophils # (A) 0.2 k/uL (0-0.7); Eosinophils % (A) 3 %; HCT 27.4 % (39.0-53.0); HDW 2.44; HGB 8.7 gm/dL (13.0-17.5); Luc # (Auto) 0.18; Luc % (Auto) 4; Lymphocytes # (A) 1.4 k/uL (1.0-4.8); Lymphocytes % (A) 26 %; MCH 30.7 pg (25.0-35.0); MCHC 31.9 g/dL (31.0-37.0); MCV 96.2 fL (80.0-100.0); Mean Platelet Volume 6.4; Monocytes # (A) 0.5 k/uL (0-1.0); Monocytes % (A) 9 %; Neutrophils % (A) 58 %; RBC 2.85 m/uL (4.30-5.90); RDW 15.1 % (11.5-15.5); WBC 5.3 k/uL (3.8-10.6); WBC (Perox) 5.52
[2016-11-28 06:09] LABS: Glucose,Whole Blood 106 mg/dL (75-99)
[2016-11-28 06:17] LABS: Anion Gap 7 mmol/L; Blood Urea Nitrogen 7 mg/dL (9-20); Carbon Dioxide 20 mmol/L (22-30); Chloride 110 mmol/L (98-107); Glucose 94 mg/dL (74-99); Magnesium 1.8 mg/dL (1.6-2.3); Non-African American GFR(MDRD) >60 (>60 ml/min/1.73 sqM); Potassium 3.7 mmol/L (3.5-5.1); Sodium 137 mmol/L (137-145)
[2016-11-28] MEDS: INSULIN LISPRO (humaLOG) 300 UNIT/3 ML VIAL SQ SCH ×4 (06:22→22:07)
[2016-11-28] MEDS: AMPICILLIN-SULBACTAM 3 GM in SODIUM CHLORIDE 0.9% 100 ML IVPB SCH ×3 (06:24→17:04)
[2016-11-28] MEDS ORDERED: LIDOCAINE 2% INJ 20 MG/ML (20 ML MDV) ONE (09:55)
[2016-11-28] MEDS ORDERED: LIDOCAINE 2% INJ 20 MG/ML SQ ONE (10:10)
[2016-11-28] MEDS: VANCOMYCIN 1,250 MG in SODIUM CHLORIDE 0.9% 250 ML IVPB SCH (10:30)
[2016-11-28] MEDS: INSULIN GLARGINE 100 UNIT/ML 10 ML VIAL SQ SCH (10:33)
[2016-11-28] MEDS: ASPIRIN 81 MG CHEW PO SCH (10:35)
[2016-11-28] MEDS: COLLAGENASE 250 UNIT/GM OINTMENT 30 GM TUBE TOPICAL SCH (10:35)
[2016-11-28] MEDS: ENOXAPARIN 40 MG/0.4 ML SYRINGE SQ SCH (10:36)
[2016-11-28] MEDS: CHOLECALCIFEROL 1,000 UNIT TAB PO SCH (10:36)
[2016-11-28] MEDS: MEMANTINE 10 MG TAB PO SCH ×2 (10:37→22:07)
[2016-11-28] MEDS: FERROUS SULFATE 325 MG TAB PO SCH ×2 (10:37→22:07)
[2016-11-28] MEDS: LISINOPRIL 10 MG TAB PO SCH (10:37)
[2016-11-28] MEDS: PANTOPRAZOLE 40 MG/10 ML VIAL IV SCH (10:38)
--- NOTE | 2016-11-28 10:46 | IR ---
EXAMINATION TYPE: IR cvc insert >=5 years DATE OF EXAM: 11/28/2016 10:28 AM COMPARISON: CLINICAL HISTORY: Infection Needs long-term intravenous access for antibiotics. PROCEDURE: After informed consent, the skin overlying the right basilic vein was localized with ultrasound and n oted to be compressible and patent. An ultrasound image was obtained and submitted on the patient's chart. The overlying skin was prepped and draped and Lidocaine was used for local anesthesia. A ski n srini was made with a scalpel. Access was gained to the vein under ultrasound guidance with a 21 ga uge needle and a 0.018 inch wire was advanced. Access site was dilated with Peel-Away sheath and cat heter tailored to the appropriate length and advanced such that the distal tip is at the cavoatrial j unction. Spot image was obtained verifying placement. Catheter was fixed to the skin with suture an d a sterile dressing was placed following hemostasis. Catheter was aspirated and flushed with saline . Patient was discharged in stable condition without complication. Maximal barrier technique is util ized. Ultrasound image is documented on the chart. Ultrasound used with sterile technique. Fluoro time and fluoroscopic images submitted to document procedure: 0.4 minutes fluoroscopy time, 71 intraoperative C-arm images document the procedure IMPRESSION: STATUS POST ULTRASOUND AND FLUOROSCOPIC GUIDED PICC LINE PLACEMENT, READY FOR USE. THIS PROCEDURE WAS PERFORMED BY THE UNDERSIGNED.
[2016-11-28] MEDS: SENNOSIDES-DOCUSATE SODIUM 1 EACH TAB PO SCH (10:53)
[2016-11-28 12:02] LABS: Glucose,Whole Blood 135 mg/dL (75-99)
[2016-11-28 13:38] VITALS: BMI 24.5
--- NOTE | 2016-11-28 13:49 | P.PN ---
Subjective Patient is doing well today. No acute events overnight. Objective - Vital Signs Vital signs: Vital Signs Temp 99.1 F 11/28/16 09:30 Pulse 71 11/28/16 09:30 Resp 18 11/28/16 09:30 BP 118/96 11/28/16 09:30 Pulse Ox 97 11/28/16 09:30 Intake & Output 11/27/16 11/28/16 11/28/16 18:59 06:59 18:59 Intake Total 790 0 450 Output Total 1640 011 2030 Balance -860 -625 -1150 Weight 69 kg 69 kg Intake: IV 100 100 sodium chloride 0.9% @ 20 100 100 mls/hr Intake, IV Titration 250 250 Amount Magnesium Sulfate-D5w Pmx 200 1 gm In Dextrose/Water 1 100ml.bag @ 100 mls/hr IVPB Q1H LORE Rx#: [id number] Vancomycin 1,250 mg In 250 Sodium Chloride 0.9% 250 ml @ 125 mls/hr IVPB Q16H LORE Rx#:[id number] cefTRIAXone 1,000 mg In 50 Sodium Chloride 0.9% 50 ml @ 100 mls/hr IVPB Q24H LORE Rx#:[id number] Oral 440 0 100 Output: Urine 1683 230 2401 Straight 750 800 Other: Voiding Method Indwelling Catheter Indwelling Catheter Indwelling Catheter # Bowel Movements 1 - Exam General: The patient is awake and alert, in no distress Eye: there is normal conjunctiva bilaterally. Neck: The neck is supple, there is no JVD. Cardiovascular: Normal S1-S2, no S3-S4, no murmurs. Respiratory: Lungs clear to auscultation bilaterally Gastrointestinal: Abdomen is soft, nontender Musculoskeletal: There is no pedal edema. Neurological:. Speech is normal. Skin: Please refer to nursing staff documentation as well as pictures in the paper chart for description of the decubitus ulcer - Labs CBC & Chem 7: 11/28/16 05:45 11/28/16 05:45 Labs: Abnormal Lab Results - Last 24 Hours (Table) 11/27/16 11/27/16 11/28/16 Range/Units 17:15 20:29 05:45 RBC (4.30-5.90) m/uL Hgb (13.0-17.5) gm/dL Hct (39.0-53.0) % Chloride 110 H (98-107) mmol/L Carbon Dioxide 20 L (22-30) mmol/L BUN 7 L (9-20) mg/dL POC Glucose (mg/dL) 70 L 130 H (75-99) mg/dL Calcium 8.0 L (8.4-10.2) mg/dL 11/28/16 11/28/16 11/28/16 Range/Units 05:45 06:08 11:51 RBC 2.85 L (4.30-5.90) m/uL Hgb 8.7 L (13.0-17.5) gm/dL Hct 27.4 L (39.0-53.0) % Chloride (98-107) mmol/L Carbon Dioxide (22-30) mmol/L BUN (9-20) mg/dL POC Glucose (mg/dL) 106 H 135 H (75-99) mg/dL Calcium (8.4-10.2) mg/dL Microbiology - Last 24 Hours (Table) 11/24/16 22:00 Blood Culture - Preliminary Blood No Growth after 72 hours 11/26/16 13:40 Gram Stain - Preliminary Buttock Wound Culture - Preliminary Gram Neg Bacilli Assessment and Plan Plan: 1. decubitus ulcer infection with sepsis on presentation 2. Osteomyelitis of the sacrum 3. 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 Essential hypertension: Blood pressure well-controlled 5. Type 2 diabetes mellitus 6. Iron deficiency anemia 7. DVT prophylaxis with Lovenox This is a 76-year-old gentleman who presented to the hospital with decubitus ulcer infection and sepsis. He underwent debridement in the OR by general surgery. He is maintained on broad-spectrum antibiotic awaiting culture to finalize. His clinical condition improved overall.. We will continue supportive care otherwise. Repeat lab work in the morning.
[2016-11-28 16:45] LABS: Glucose,Whole Blood 114 mg/dL (75-99)
[2016-11-28] MEDS: TAMSULOSIN 0.4 MG CAP.ER.24H PO SCH (18:14)
[2016-11-28] MEDS: ACETAMINOPHEN TAB 325 MG TAB PO PRN (21:17)
[2016-11-28 21:45] LABS: Glucose,Whole Blood 150 mg/dL (75-99)
[2016-11-28] MEDS: DONEPEZIL 5 MG TAB PO SCH (22:07)
[2016-11-28] MEDS: PRAVASTATIN SODIUM 40 MG TAB PO SCH (22:07)
[2016-11-28] MEDS: MULTIVITAMINS, THERA 1 EACH TAB PO SCH (22:07)
[2016-11-29] MEDS: AMPICILLIN-SULBACTAM 3 GM in SODIUM CHLORIDE 0.9% 100 ML IVPB SCH ×5 (00:29→23:57)
[2016-11-29] MEDS: VANCOMYCIN 1,250 MG in SODIUM CHLORIDE 0.9% 250 ML IVPB SCH (01:47)
[2016-11-29 07:17] LABS: Glucose,Whole Blood 111 mg/dL (75-99)
--- NOTE | 2016-11-29 08:29 | PN ---
DATE OF SERVICE: 11/28/2016 Reason for follow-up is sacral osteomyelitis. INTERVAL HISTORY: The patient is afebrile. He has been breathing comfortably. He remains to be awake, alert and nonverbal and unable to provide a history. No nausea, vomiting or any diarrhea has been noticed by the nursing staff. On examination, blood pressure is 109/45 with a pulse of 93, temperature 97. He is 96% on room air. General description is an elderly male lying in bed in no distress. RESPIRATORY SYSTEM: Unlabored breathing. Clear to auscultation anteriorly. HEART: S1, S2 regular rate and rhythm. ABDOMEN: Soft, no tenderness. Sacral wound is currently dressed up. No drainage. No dressing. LABS: Hemoglobin 8.7, white count 5.3 with a BUN of 7, creatinine 0.7. Wound culture with Proteus mirabilis. DIAGNOSTIC IMPRESSION AND PLAN: Patient with sacral osteomyelitis status post extensive debridement of the wound. Culture has been positive for the Proteus mirabilis. Patient is currently covered with the Unasyn. As no Gram-positive has been grown to discontinue the vancomycin. This antibiotic was more likely in the form of ceftriaxone and possible Flagyl orally. Local wound care with the Santyl and keep the area off the pressure.
[2016-11-29 08:59] LABS: Basophils % (A) 0 %; CH 30.3; CHCM 31.6; Eosinophils # (A) 0.1 k/uL (0-0.7); Eosinophils % (A) 2 %; HCT 30.2 % (39.0-53.0); HDW 2.53; HGB 9.6 gm/dL (13.0-17.5); Luc # (Auto) 0.28; Luc % (Auto) 4; Lymphocytes # (A) 1.3 k/uL (1.0-4.8); Lymphocytes % (A) 19 %; MCH 30.5 pg (25.0-35.0); MCHC 31.8 g/dL (31.0-37.0); MCV 96.1 fL (80.0-100.0); Mean Platelet Volume 6.5; Monocytes # (A) 0.5 k/uL (0-1.0); Monocytes % (A) 7 %; Neutrophils # (A) 4.6 k/uL (1.3-7.7); Neutrophils % (A) 68 %; RBC 3.14 m/uL (4.30-5.90); RDW 15.4 % (11.5-15.5); WBC 6.8 k/uL (3.8-10.6); WBC (Perox) 6.94
[2016-11-29 09:20] LABS: Anion Gap 9 mmol/L; Blood Urea Nitrogen 5 mg/dL (9-20); Calcium 8.2 mg/dL (8.4-10.2); Carbon Dioxide 20 mmol/L (22-30); Chloride 110 mmol/L (98-107); Glucose 105 mg/dL (74-99); Magnesium 1.6 mg/dL (1.6-2.3); Non-African American GFR(MDRD) >60 (>60 ml/min/1.73 sqM); Potassium 3.9 mmol/L (3.5-5.1); Sodium 139 mmol/L (137-145)
[2016-11-29] MEDS: INSULIN LISPRO (humaLOG) 300 UNIT/3 ML VIAL SQ SCH ×4 (09:29→22:34)
[2016-11-29] MEDS: LISINOPRIL 10 MG TAB PO SCH (09:31)
[2016-11-29] MEDS: FERROUS SULFATE 325 MG TAB PO SCH ×2 (09:32→22:34)
[2016-11-29] MEDS: CHOLECALCIFEROL 1,000 UNIT TAB PO SCH (09:32)
[2016-11-29] MEDS: ASPIRIN 81 MG CHEW PO SCH (09:32)
[2016-11-29] MEDS: ENOXAPARIN 40 MG/0.4 ML SYRINGE SQ SCH (09:32)
[2016-11-29] MEDS: PANTOPRAZOLE 40 MG/10 ML VIAL IV SCH (09:32)
[2016-11-29] MEDS: MEMANTINE 10 MG TAB PO SCH ×2 (09:32→22:34)
[2016-11-29] MEDS: COLLAGENASE 250 UNIT/GM OINTMENT 30 GM TUBE TOPICAL SCH (09:37)
[2016-11-29] MEDS: INSULIN GLARGINE 100 UNIT/ML 10 ML VIAL SQ SCH (09:37)
[2016-11-29] MEDS: SENNOSIDES-DOCUSATE SODIUM 1 EACH TAB PO SCH (09:38)
[2016-11-29] MEDS: HYDROcodone/APAP 5-325MG 1 EACH TAB PO PRN (09:40)
[2016-11-29 11:50] LABS: Glucose,Whole Blood 125 mg/dL (75-99)
--- NOTE | 2016-11-29 12:43 | P.PN ---
Subjective Patient is doing well today. No acute events overnight. Objective - Vital Signs Vital signs: Vital Signs Temp 98.3 F 11/29/16 07:00 Pulse 105 H 11/29/16 07:00 Resp 16 11/29/16 07:00 BP 143/61 11/29/16 07:00 Pulse Ox 98 11/29/16 12:12 Intake & Output 11/28/16 11/29/16 11/29/16 18:59 06:59 18:59 Intake Total 690 Output Total 3100 350 Balance -2410 -350 Weight 69 kg Intake: IV 100 sodium chloride 0.9% @ 20 100 mls/hr Intake, IV Titration 250 Amount Vancomycin 1,250 mg In 250 Sodium Chloride 0.9% 250 ml @ 125 mls/hr IVPB Q16H LORE Rx#:[id number] Oral 340 Output: Urine 3100 350 Straight 2300 Other: Voiding Method Indwelling Catheter Indwelling Catheter Indwelling Catheter # Bowel Movements 1 - Exam General: The patient is awake and alert, in no distress Eye: there is normal conjunctiva bilaterally. Neck: The neck is supple, there is no JVD. Cardiovascular: Normal S1-S2, no S3-S4, no murmurs. Respiratory: Lungs clear to auscultation bilaterally Gastrointestinal: Abdomen is soft, nontender Musculoskeletal: There is no pedal edema. Neurological:. Speech is normal. Skin: Please refer to nursing staff documentation as well as pictures in the paper chart for description of the decubitus ulcer - Labs CBC & Chem 7: 11/29/16 08:32 11/29/16 08:32 Labs: Abnormal Lab Results - Last 24 Hours (Table) 11/28/16 11/28/16 11/29/16 Range/Units 16:34 21:01 07:07 RBC (4.30-5.90) m/uL Hgb (13.0-17.5) gm/dL Hct (39.0-53.0) % Chloride (98-107) mmol/L Carbon Dioxide (22-30) mmol/L BUN (9-20) mg/dL Glucose (74-99) mg/dL POC Glucose (mg/dL) 114 H 150 H 111 H (75-99) mg/dL Calcium (8.4-10.2) mg/dL 11/29/16 11/29/16 11/29/16 Range/Units 08:32 08:32 11:49 RBC 3.14 L (4.30-5.90) m/uL Hgb 9.6 L (13.0-17.5) gm/dL Hct 30.2 L (39.0-53.0) % Chloride 110 H (98-107) mmol/L Carbon Dioxide 20 L (22-30) mmol/L BUN 5 L (9-20) mg/dL Glucose 105 H (74-99) mg/dL POC Glucose (mg/dL) 125 H (75-99) mg/dL Calcium 8.2 L (8.4-10.2) mg/dL Microbiology - Last 24 Hours (Table) 11/24/16 22:00 Blood Culture - Preliminary Blood No Growth after 96 hours 11/26/16 13:40 Gram Stain - Final Buttock Wound Culture - Final Proteus mirabilis Assessment and Plan Plan: 1. decubitus ulcer infection with sepsis on presentation 2. Osteomyelitis of the sacrum 3. 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 Essential hypertension: Blood pressure well-controlled 5. Type 2 diabetes mellitus 6. Iron deficiency anemia 7. DVT prophylaxis with Lovenox This is a 76-year-old gentleman who presented to the hospital with decubitus ulcer infection and sepsis. He underwent debridement in the OR by general surgery. He is maintained on broad-spectrum antibiotic awaiting culture to finalize. His clinical condition improved overall.. We will continue supportive care otherwise. Repeat lab work in the morning. Appreciate infectious disease recommendations regarding antibiotic. Plan to discharge back to [facility] on Thursday. Griffin catheter will be continued for protection of the wound for now.
[2016-11-29 16:59] LABS: Glucose,Whole Blood 173 mg/dL (75-99)
[2016-11-29] MEDS: TAMSULOSIN 0.4 MG CAP.ER.24H PO SCH (17:46)
[2016-11-29] MEDS: ACETAMINOPHEN TAB 325 MG TAB PO PRN (20:05)
[2016-11-29 21:26] LABS: Glucose,Whole Blood 223 mg/dL (75-99)
--- NOTE | 2016-11-29 21:48 | PN ---
DATE OF SERVICE: 11/29/2016 Reason for follow-up: Infected sacral pressure ulcer with osteomyelitis, gram-negative. INTERVAL HISTORY: The patient is afebrile. The patient remains to be non verbal and unable to answer any question ,no respitory distress. No nausea or vomiting. No diarrhea. On examination, blood pressure is 145/55 with a pulse of 103, temperature 97.9, he is 97% on room air. General description is an elderly male lying in bed in no distress. RESPIRATORY SYSTEM: Unlabored breathing. Clear to auscultation anteriorly. HEART: S1, S2. Regular rate and rhythm. ABDOMEN: Soft, no tenderness. LABS: Hemoglobin 9.6, white count 6.8 with a BUN of 5, creatinine 0.71. Wound culture with anaerobic Gram-positive bacilli as well as Proteus mirabilis. DIAGNOSTIC IMPRESSION AND PLAN: Patient with sacral osteomyelitis. Cultures positive for anaerobic gram negative in addition to the Proteus, the patient continue on Unasyn . The vancomycin has been discontinued. Outpatient antibiotic in the form of Rocephin 2gm daily in addition to the oral Flagyl. Duration of antibiotics will be 6 weeks. We will discuss with surgery if the wound VAC may be an option. Continue with Santyl and moist dressing the wound at this point. MATTHEW
[2016-11-29] MEDS: MULTIVITAMINS, THERA 1 EACH TAB PO SCH (22:34)
[2016-11-29] MEDS: PRAVASTATIN SODIUM 40 MG TAB PO SCH (22:34)
[2016-11-29] MEDS: DONEPEZIL 5 MG TAB PO SCH (22:34)
[2016-11-30] MEDS: AMPICILLIN-SULBACTAM 3 GM in SODIUM CHLORIDE 0.9% 100 ML IVPB SCH ×4 (05:59→23:41)
[2016-11-30 07:57] LABS: Glucose,Whole Blood 125 mg/dL (75-99)
[2016-11-30 08:36] LABS: Basophils % (A) 0 %; CH 30.3; CHCM 31.8; Eosinophils # (A) 0.2 k/uL (0-0.7); Eosinophils % (A) 2 %; HDW 2.57; HGB 9.4 gm/dL (13.0-17.5); Luc % (Auto) 4; Lymphocytes # (A) 1.6 k/uL (1.0-4.8); Lymphocytes % (A) 22 %; MCHC 31.4 g/dL (31.0-37.0); MCV 95.5 fL (80.0-100.0); Mean Platelet Volume 7.5; Monocytes # (A) 0.7 k/uL (0-1.0); Monocytes % (A) 10 %; Neutrophils # (A) 4.5 k/uL (1.3-7.7); Neutrophils % (A) 62 %; RBC 3.15 m/uL (4.30-5.90); RDW 15.4 % (11.5-15.5); WBC 7.3 k/uL (3.8-10.6); WBC (Perox) 7.75
[2016-11-30] MEDS: FERROUS SULFATE 325 MG TAB PO SCH ×2 (09:32→21:13)
[2016-11-30] MEDS: INSULIN LISPRO (humaLOG) 300 UNIT/3 ML VIAL SQ SCH ×4 (09:32→21:14)
[2016-11-30] MEDS: PANTOPRAZOLE 40 MG/10 ML VIAL IV SCH (09:32)
[2016-11-30] MEDS: ASPIRIN 81 MG CHEW PO SCH (09:32)
[2016-11-30] MEDS: ENOXAPARIN 40 MG/0.4 ML SYRINGE SQ SCH (09:32)
[2016-11-30] MEDS: LISINOPRIL 10 MG TAB PO SCH (09:32)
[2016-11-30] MEDS: CHOLECALCIFEROL 1,000 UNIT TAB PO SCH (09:32)
[2016-11-30] MEDS: MEMANTINE 10 MG TAB PO SCH ×2 (09:32→21:14)
[2016-11-30] MEDS: COLLAGENASE 250 UNIT/GM OINTMENT 30 GM TUBE TOPICAL SCH (09:34)
[2016-11-30] MEDS: INSULIN GLARGINE 100 UNIT/ML 10 ML VIAL SQ SCH (09:40)
[2016-11-30] MEDS: SENNOSIDES-DOCUSATE SODIUM 1 EACH TAB PO SCH (09:40)
[2016-11-30 12:00] LABS: Glucose,Whole Blood 244 mg/dL (75-99)
--- NOTE | 2016-11-30 12:24 | P.PN ---
Subjective Patient is doing well today. No acute events overnight. Objective - Vital Signs Vital signs: Vital Signs Temp 98.3 F 11/30/16 07:00 Pulse 109 H 11/30/16 07:00 Resp 16 11/30/16 07:00 BP 132/63 11/30/16 07:00 Pulse Ox 99 11/30/16 07:00 Intake & Output 11/29/16 11/30/16 11/30/16 18:59 06:59 18:59 Intake Total 150 Output Total 500 Balance 150 -500 Intake: Oral 150 Output: Urine 500 Other: Voiding Method Indwelling Catheter Indwelling Catheter # Bowel Movements 1 - Exam General: The patient is awake and alert, in no distress Eye: there is normal conjunctiva bilaterally. Neck: The neck is supple, there is no JVD. Cardiovascular: Normal S1-S2, no S3-S4, no murmurs. Respiratory: Lungs clear to auscultation bilaterally Gastrointestinal: Abdomen is soft, nontender Musculoskeletal: There is no pedal edema. Neurological:. Speech is normal. Skin: Please refer to nursing staff documentation as well as pictures in the paper chart for description of the decubitus ulcer - Labs CBC & Chem 7: 11/30/16 07:27 11/29/16 08:32 Labs: Abnormal Lab Results - Last 24 Hours (Table) 11/29/16 11/29/16 11/30/16 Range/Units 16:57 21:24 07:27 RBC 3.15 L (4.30-5.90) m/uL Hgb 9.4 L (13.0-17.5) gm/dL Hct 30.0 L (39.0-53.0) % POC Glucose (mg/dL) 173 H 223 H (75-99) mg/dL 11/30/16 11/30/16 Range/Units 07:30 11:58 RBC (4.30-5.90) m/uL Hgb (13.0-17.5) gm/dL Hct (39.0-53.0) % POC Glucose (mg/dL) 125 H 244 H (75-99) mg/dL Microbiology - Last 24 Hours (Table) 11/26/16 13:40 Anaerobic Culture - Final Buttock Anaerobic Gm Negative Bacilli Anaerobic Gm Positive Bacill 11/24/16 22:00 Blood Culture - Preliminary Blood No Growth after 120 hours Assessment and Plan Plan: 1. decubitus ulcer infection with sepsis on presentation 2. Osteomyelitis of the sacrum 3. 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 Essential hypertension: Blood pressure well-controlled 5. Type 2 diabetes mellitus 6. Iron deficiency anemia 7. DVT prophylaxis with Lovenox This is a 76-year-old gentleman who presented to the hospital with decubitus ulcer infection and sepsis. He underwent debridement in the OR by general surgery. He is maintained on broad-spectrum antibiotic awaiting culture to finalize. His clinical condition improved overall.. We will continue supportive care otherwise. Repeat lab work in the morning. Appreciate infectious disease recommendations regarding antibiotic. Plan to discharge back to [facility] on Thursday. Griffin catheter will be continued for protection of the wound for now.
[2016-11-30 17:07] LABS: Glucose,Whole Blood 99 mg/dL (75-99)
[2016-11-30] MEDS: TAMSULOSIN 0.4 MG CAP.ER.24H PO SCH (17:42)
[2016-11-30] MEDS: DONEPEZIL 5 MG TAB PO SCH (21:13)
[2016-11-30] MEDS: PRAVASTATIN SODIUM 40 MG TAB PO SCH (21:14)
[2016-11-30] MEDS: MULTIVITAMINS, THERA 1 EACH TAB PO SCH (21:14)
[2016-11-30 21:45] LABS: Glucose,Whole Blood 180 mg/dL (75-99)
[2016-12-01] MEDS: AMPICILLIN-SULBACTAM 3 GM in SODIUM CHLORIDE 0.9% 100 ML IVPB SCH ×3 (06:37→18:08)
[2016-12-01 07:45] LABS: Glucose,Whole Blood 85 mg/dL (75-99)
[2016-12-01 07:57] VITALS: RESP 16
[2016-12-01] MEDS: INSULIN GLARGINE 100 UNIT/ML 10 ML VIAL SQ SCH (10:11)
[2016-12-01] MEDS: SENNOSIDES-DOCUSATE SODIUM 1 EACH TAB PO SCH (10:11)
[2016-12-01] MEDS: PANTOPRAZOLE 40 MG/10 ML VIAL IV SCH (10:11)
[2016-12-01] MEDS: ENOXAPARIN 40 MG/0.4 ML SYRINGE SQ SCH (10:11)
[2016-12-01] MEDS: MEMANTINE 10 MG TAB PO SCH (10:12)
[2016-12-01] MEDS: FERROUS SULFATE 325 MG TAB PO SCH (10:12)
[2016-12-01] MEDS: ASPIRIN 81 MG CHEW PO SCH (10:12)
[2016-12-01] MEDS: CHOLECALCIFEROL 1,000 UNIT TAB PO SCH (10:13)
[2016-12-01] MEDS: COLLAGENASE 250 UNIT/GM OINTMENT 30 GM TUBE TOPICAL SCH (10:13)
[2016-12-01] MEDS: INSULIN LISPRO (humaLOG) 300 UNIT/3 ML VIAL SQ SCH ×3 (10:13→18:08)
[2016-12-01] MEDS: LISINOPRIL 10 MG TAB PO SCH (10:14)
--- NOTE | 2016-12-01 11:18 | P.DS ---
Providers Date of admission: 11/24/16 16:01 Expected date of discharge: 12/01/16 Attending physician: Keron Mora Consults: 11/24/16 20:31 Consult Physician Routine Consulting Provider: Connor Beard Consult Reason/Comments: infection, wounds Do you want consulting provider notified?: Yes 11/25/16 10:51 Consult Physician Routine Consulting Provider: Tai Song Consult Reason/Comments: decub ulcer Do you want consulting provider notified?: Yes Primary care physician: [facility] Course: 1. decubitus ulcer infection with sepsis on presentation 2. Osteomyelitis of the sacrum 3. 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 Essential hypertension: Blood pressure well-controlled 5. Type 2 diabetes mellitus 6. Iron deficiency anemia 7. DVT prophylaxis with Lovenox This is a 76-year-old gentleman who presented to the hospital with decubitus ulcer infection and sepsis. He underwent debridement in the OR by general surgery. He is maintained on broad-spectrum antibiotic. His clinical condition improved overall. Griffin catheter will be continued for protection of the wound for now. He will finish antibiotic course as prescribed by infectious disease. I will continue to follow up on him closely. Patient Condition at Discharge: Fair Plan - Discharge Summary New Discharge Prescriptions: HYDROcodone/APAP 5-325MG [[place] 5-325] 1 each PO Q6HR PRN #60 tab PRN Reason: Moderate Pain cefTRIAXone [Rocephin] 2,000 mg IVPB Q24HR #42 vial metroNIDAZOLE [Flagyl] 500 mg PO Q8HR #126 tab Discharge Medication List Aspirin EC [Ecotrin Low Dose] 81 mg PO DAILY 08/03/16 [History] Cholecalciferol [Vitamin D3] 2,000 unit PO DAILY 08/03/16 [History] Donepezil HCl 5 mg PO HS 08/03/16 [History] Insulin Glargine [Lantus] 5 units SQ DAILY 08/03/16 [History] Lisinopril 10 mg PO DAILY 08/03/16 [History] Multivitamins, Thera [Multivitamin] 1 tab PO HS 08/03/16 [History] Pravastatin Sodium 40 mg PO HS 08/03/16 [History] metFORMIN HCL 1,000 mg PO BID 08/03/16 [History] Ferrous Sulfate [Feosol] 325 mg PO BID #60 tab 08/07/16 [Rx] Sennosides-Docusate Sodium [Senokot-S] 2 tab PO DAILY #30 tablet 08/07/16 [Rx] Tamsulosin [Flomax] 0.4 mg PO PC-SUPPER #30 cap.er.24h 09/16/16 [Rx] clonazePAM [KlonoPIN] 0.5 mg PO BID PRN #60 tab 09/16/16 [Rx] Magnesium Hydroxide [Milk of Magnesia] 400 mg PO Q72H PRN 11/17/16 [History] Acetaminophen Tab [Tylenol] 650 mg PO Q4H PRN 11/24/16 [History] Amino Acids/Protein Hydrolys [Pro-Stat Supplement] 30 ml PO BID 11/24/16 [ History] Memantine [Namenda] 10 mg PO BID 11/24/16 [History] cefTRIAXone [Rocephin] 2,000 mg IVPB Q24HR #42 vial 11/30/16 [Rx] metroNIDAZOLE [Flagyl] 500 mg PO Q8HR #126 tab 11/30/16 [Rx] Collagenase [Santyl] 1 applic TOPICAL DAILY applic 12/01/16 [Rx] HYDROcodone/APAP 5-325MG [[place] 5-325] 1 each PO Q6HR PRN #60 tab 12/01/16 [Rx] Follow up Appointment(s)/Referral(s): Keron Mora MD [Primary Care Provider] - 1-2 days Connor Beard MD [STAFF PHYSICIAN] - 1 Week Patient Instructions/Handouts: Type 2 Diabetes in Adults (DC) Discharge Disposition: TRANSFER TO SNF/ECF
[2016-12-01 12:04] LABS: Glucose,Whole Blood 175 mg/dL (75-99)
--- NOTE | 2016-12-01 12:05 | PN ---
DATE OF SERVICE: 11/30/2016 Reason for follow-up: Sacral osteomyelitis. INTERVAL HISTORY: The patient is afebrile. Has been breathing comfortably. He remains to be non verbal. No nausea or vomiting has been noticed or any diarrhea. On examination, blood pressure 123/58 with a pulse 102, temperature is 96.9, he is 97% on room air. General description is an elderly male lying in bed in no distress. Respiratory system: Unlabored breathing. Clear to auscultation anteriorly. HEART: S1, S2 regular rate and rhythm. ABDOMEN: Soft, no tenderness. Extremities no edema of feet. LABS: Hemoglobin is 9.4, white count 7.3. Wound cultures with anaerobic gram-negative bacilli Proteus mirabilis. DIAGNOSTIC IMPRESSION AND PLAN: Patient with sacral osteomyelitis polymicrobial currently on Unasyn, antibiotic to be adjusted to Rocephin 2 gm daily along with Flagyl 500 mg p.o. q.8 hours for another five weeks. Santyl to the wound followed by moist dressing. Reevaluate the wound tomorrow for possible wound V.A.C. Continue supportive care. MATTHEW
[2016-12-01 15:19] VITALS: BP 127/58; PULSE 84; TEMP 97
[2016-12-01 16:54] LABS: Glucose,Whole Blood 145 mg/dL (75-99)
--- NOTE | 2016-12-01 17:19 | PN ---
DATE OF SERVICE: 12/01/2016 REASON FOR FOLLOWUP: Sacral osteomyelitis. INTERVAL HISTORY: The patient is afebrile. He remains hemodynamically stable. No nausea or vomiting has been noticed or any diarrhea. On examination, blood pressure is 108/51 with a pulse of 83, temperature of 98.1. He is 96% on room air. General description is an elderly male lying in bed in no distress. RESPIRATORY SYSTEM: Unlabored breathing. Clear to auscultation anteriorly. HEART: S1, S2. Regular rate and rhythm. ABDOMEN: Soft. No tenderness. EXAMINATION OF SACRAL WOUND: Wound did have some slough tissue at the base, though improved. No drainage on the dressing. DIAGNOSTIC IMPRESSION AND PLAN: Patient with sacral osteomyelitis, status post debridement. Would recommend a thick layer of Santyl followed by wound V.A.C. application. When he gets to the alf, antibiotic will be adjusted to Rocephin IV and oral Flagyl with followup in the office in about one week's time. Schedule for the patient. MATTHEW
[2016-12-01] MEDS: TAMSULOSIN 0.4 MG CAP.ER.24H PO SCH (18:08)
[2016-12-02] MEDS ORDERED: PANTOPRAZOLE SODIUM 40 MG GRANULE PKT PO SCH (07:30)
== END 2016-12-01 19:32 | DRG 853 ==
LOC: EC 14:16 → 6SEL 16:01 → 4MS4W 11-28 17:14
PROVIDERS: ADMIT Internal Medicine; ATTEND Internal Medicine
PROC: 0QB10ZZ Excision of Sacrum, Open Approach (ICD-10-PCS; principal; 2016-11-26 12:05)
DX: A41.9 Sepsis, unspecified organism (principal); L89.154 Pressure ulcer of sacral region, stage 4; M46.28 Osteomyelitis of vertebra, sacral and sacrococcygeal region; E11.69 Type 2 diabetes mellitus with other specified complication; G30.9 Alzheimer's disease, unspecified; F02.80 Dementia in other diseases classified elsewhere, unspecified severity, without behavioral disturbance, psychotic disturbance, mood disturbance, and anxiety; I10 Essential (primary) hypertension; D50.9 Iron deficiency anemia, unspecified; R63.3 Feeding difficulties; Z96.642 Presence of left artificial hip joint; E78.5 Hyperlipidemia, unspecified; Z74.01 Bed confinement status; Z87.891 Personal history of nicotine dependence; Z79.4 Long term (current) use of insulin; Z79.84 Long term (current) use of oral hypoglycemic drugs; Z79.82 Long term (current) use of aspirin; Z79.899 Other long term (current) drug therapy
CPT/HCPCS: 36415; 36569; 71020; 72220; 76937; 77001; 80048; 80053; 80202; 81003; 82533; 82550; 82553; 83036; 83605; 83735; 84100; 84484; 85025; 85610; 85730; 87040; 87070; 87075; 87077; 87086; 87186; 87205; 87502; 93005; 94760; 96365; 96367; 96375; 99285